=== PATIENT | male | born 1970 | race Caucasian/White ===

== ENCOUNTER → 2016-08-28 | Outpatient (CLI) | payer OTHER ==
[~2016-08-28] MED LIST: HYDR12.55 PO; LEVO75TA PO; LISI-725 PO
[2016-08-28 09:51] LABS: BASO % 1.6 %; BASO ABS # 0.12 K/uL (0-0.2); COMPLETE YES; EOS % 8.9 %; IG% 0.3 %; LYMPH % 35.4 %; LYMPH ABS # 2.72 K/uL (1.2-3.4); MEAN CELL VOLUME 85.2 fL (80-100); MEAN CORPUSCULAR HEMOGLOBIN 29.6 pg (25-34); MEAN CORPUSCULAR HGB CONC 34.8 g/dl (32-36); MEAN PLATELET VOLUME 9.4 fL (7.4-10.4); NEUT % 43.8 %; PLATELET COUNT 417 K/uL (130-400); RED BLOOD COUNT 4.93 M/uL (4.7-6.1); WHITE BLOOD COUNT 7.68 K/uL (4.8-10.8)
[2016-08-28 11:13] LABS: ALT/SGPT 42 U/L (12-78); AST/SGOT 48 U/L (15-37); BLOOD UREA NITROGEN 19 mg/dl (7-18); CALCIUM 9.7 mg/dl (8.5-10.1); CARBON DIOXIDE 25 mmol/L (21-32); CHLORIDE 103 mmol/L (98-107); GLUCOSE 84 mg/dl (70-99); POTASSIUM 3.7 mmol/L (3.5-5.1); SODIUM 140 mmol/L (136-145)
[2016-08-28 11:24] LABS: CHOLESTEROL 233 mg/dl (0-200); CHOLESTEROL/HDL RATIO 5.7; HDL CHOLESTEROL 41 mg/dl; LDL CHOLESTEROL CALCULATED 150 mg/dl; TRIGLYCERIDES 209 mg/dl (0-150); VERY LOW DENSITY LIPOPROT CALC 42 mg/dl
== END | disposition home or self-care (01) ==
LOC: C.LABSPEC 06:58
PROVIDERS: ATTEND Internal Medicine
DX: E78.00 Pure hypercholesterolemia, unspecified (principal); I10 Essential (primary) hypertension; E03.9 Hypothyroidism, unspecified

== ENCOUNTER → 2017-01-16 | Outpatient (CLI) | payer OTHER ==
--- NOTE | 2017-01-16 11:40 | DIAGNOSTIC IMAGING REPORT ---
LUMBAR SPINE FLEX/EXT ONLY CLINICAL HISTORY: Back pain. COMPARISON STUDY: Lumbar spine MRI 12/02/2016. FINDINGS: Flexion-extension views of the lumbar spine were submitted for review. Alignment remains intact throughout flexion and extension. Mild degenerative disc disease with in the L3-L4 and L4-5 levels remains unchanged. No fractures identified. IMPRESSION: The alignment remains intact through both flexion and extension. Electronically signed by: Glen Lunsford M.D. 01/16/2017 11:39 AM Dictated Date/Time: 01/16/2017 11:37 AM
== END | disposition home or self-care (01) ==
LOC: C.RADBC 11:08
PROVIDERS: ATTEND Anesthesiology
DX: M54.16 Radiculopathy, lumbar region (principal)

== ENCOUNTER 2023-01-27 08:47 | Observation (INO) ==
--- NOTE | 2023-01-02 12:24 | PAT Medication Instructions ---
Medication Instructions Date of Service January 02, 2023 Home Medications Medication Instructions Recorded sildenafil 100 mg tablet 100 mg PO ONCE PRN sexual activity 05/09/22 #30 tabs levothyroxine 50 mcg tablet 50 mcg PO QAM #90 tabs 12/11/22 atorvastatin 40 mg tablet 40 mg PO QAM #90 tabs 12/17/22 lisinopril 20 mg tablet 20 mg PO QAM #90 tabs 12/18/22 Medication Instructions: sildenafil 100 mg tablet 100 mg PO ONCE PRN sexual activity levothyroxine 50 mcg tablet 50 mcg PO QAM atorvastatin 40 mg tablet 40 mg PO QAM lisinopril 20 mg tablet 20 mg PO QAM DO NOT take the morning of surgery sildenafil 100 mg tablet 100 mg PO ONCE PRN sexual activity lisinopril 20 mg tablet 20 mg PO QAM Take morning of surgery With a small sip of water, OTHERWISE NOTHING TO EAT OR DRINK AFTER MIDNIGHT: levothyroxine 50 mcg tablet 50 mcg PO QAM atorvastatin 40 mg tablet 40 mg PO QAM Other Notes If you have any questions please call us at [phone] or [phone] or [phone] or [phone]
--- NOTE | 2023-01-05 10:57 | Anesthesiology Consultation ---
Date of Service January 05, 2023 Assessment & Plan (1) Encounter for pre-operative examination: COVID screening: Per assessment on 01/05: No known COVID-19 positive contacts or current COVID-19 related symptoms. Travel screen negative. Patient vaccinated. At surgeon discretion if preop Covid testing being done. Chart Review Chart Review: Acceptable Risk for Surgery and Patient seen in Pre Admission Testing Teaching & Discussion Pre-Anesthesia Teaching/Discussion Notes: Instructed NPO after midnight before surgery,except medications with 15 cc of water. Medication instructions prov ided according to the PAT guidelines. History Surgery Operation Date: 01/27/23 07:15 Proposed Procedures p Lumbar Laminectomy/Decompression L4-L5 - Tyler Snider MD Height/Weight Height: 5 ft 11 in Weight: 103.7 kg Allergies Allergy/AdvReac Type Severity Reaction Status Date / Time No Known Allergies Allergy Verified 01/02/23 10:16 Medications Home Medications Medication Instructions Recorded Confirmed Last Taken sildenafil 100 mg tablet 100 mg PO ONCE PRN sexual activity 05/09/22 01/02/23 Unknown #30 tabs levothyroxine 50 mcg tablet 50 mcg PO QAM #90 tabs 12/11/22 01/02/23 Unknown atorvastatin 40 mg tablet 40 mg PO QAM #90 tabs 12/17/22 01/02/23 Unknown lisinopril 20 mg tablet 20 mg PO QAM #90 tabs 12/18/22 01/02/23 Unknown Past Medical History Medical History Chronic low back pain Dyslipidemia Hypertension Hypothyroidism Lumbar spinal stenosis Severe at L4-5 Osteoarthritis Exercise / Class Metabolic Activity II 4-5 Yardwork/Stairs/Walk up hill Past Family History Family History Father Diabetes Heart disease Myocardial infarction, Onset Age: 65 Hypertension Mother Myasthenia gravis Hypertension Sister Hypertension Denies family history of Ovarian cancer Prostate cancer Breast cancer Colorectal cancer Past Surgical History Surgical History Family history of reaction to anesthesia Father- slow to wake with lasik eye surgery History of arthroscopy of left shoulder History of arthroscopy of right shoulder History of colonoscopy History of surgery on right wrist History of tooth extraction Hx of vasectomy S/P decompression of ulnar nerve (02/07/20) RT Past Anesthesia History No Hx of Anesthesia Complications Father- slow to wake with lasik eye surgery History of PONV No Hx of PONV and No Hx of Motion Sickness Social History Smoking Status: Never smoker Do You Dip or Chew Tobacco: No Hx Alcohol Use: No Hx Substance Use: No substance use type: does not use Review of Systems Patient denies chest pain, shortness of breath, dyspnea on exertion, fever, chills, cough, wheezing, palpitations. Physical Exam Vital Signs VITALS BP 129/79 P 58 TEMP 98.1 SP02 98%RA RESP 16 PHYSICAL Full cervical extension range of motion. Full TMJ range of motion. TMD 3.5 finger breaths Mallampati Score 1 Dentition: partial upper Lungs: clear throughout to auscultation Cardiac: regular rate and rhythm, no murmurs noted Spine: normal Carotid arteries: negative bruit Extremities: no LE edema Lab Results Anesthesia Preop Results Results Anesthesia Widget: WBC 9.50 K/ul (4.8-10.8) 01/05/23 Hgb 14.3 g/dl (14.0-18.0) 01/05/23 Hct 41.7 % (42.0-52.0) L 01/05/23 Plt 337 K/uL (130-400) 01/05/23 Na 138 mmol/L (136-145) 01/05/23 K 4.1 mmol/L (3.5-5.1) 01/05/23 Cl 105 mmol/L (98-107) 01/05/23 CO2 28 mmol/L (21-32) 01/05/23 BUN 14 mg/dl (6-23) 01/05/23 Creat 1.00 mg/dl (0.6-1.4) 01/05/23 Glucose Level 96 mg/dl (70-99(Fasting)) 01/05/23 PT 11.0 Seconds (9.0-12.0) 01/05/23 PTT 30.2 Seconds (21.0-31.0) 01/05/23 INR 1.0 (0.9-1.1) 01/05/23 TSH 3.421 uIu/ml (0.300-4.500) 11/11/22 Blood Type A Positive 01/05/23 Antibody Screen NEGATIVE 01/05/23 Testing Electrocardiogram Date: 01/05/23 SB with occasional PVCs at 59bpm. "Otherwise normal ECG" COVID-19 Risk Screen Screening Information COVID-19 Screen Date: 01/05/23 Exposure 21 Days Family/Household +COVID Last 21 Days: No Exposure 10 Days Any COVID Exposure Last 10 Days: No Symptoms Last 10 Days Experienced COVID Sx Last 10 Days: No + COVID 0-90 Days COVID + in Last 0-90 Days: No
[~2023-01-27 08:47] MED LIST changes: -HYDR12.55 PO; -LEVO75TA PO; -LISI-725 PO; +LR 15ML/HR IV SCH; +LR 60ML/HR IV SCH; +ceFAZolin 2000MG 2,000 MG/15 ML SYR IV SCH
[2023-01-27] MEDS ORDERED: MIDAZOLAM HCL 1 MG/ML 2ML VIAL ONE (09:08)
[2023-01-27] MEDS ORDERED: fentaNYL citrate PF 100 MCG/2 ML VIAL ONE (09:09)
[2023-01-27] MEDS ORDERED: HYDROmorphone INJ 1 MG/ML SYRINGE IV PRN (10:52)
[2023-01-27] MEDS ORDERED: fentaNYL citrate PF 100 MCG/2 ML VIAL IV PRN (10:52)
[2023-01-27] MEDS ORDERED: ATROPINE SULFATE 0.1 MG/ML 10ML SYR IV PRN (10:52)
[2023-01-27] MEDS ORDERED: ONDANSETRON INJ 2 MG/ML 2 ML VIAL IV PRN ×2 (10:52→14:47)
[2023-01-27] MEDS ORDERED: ePHEDrine sulfate 50 MG/ML AMP IV PRN (10:52)
[2023-01-27] MEDS ORDERED: ACETAMINOPHEN 1000 MG/100 ML IV IV ONE (11:13)
[2023-01-27] MEDS ORDERED: BUPIVACAINE 0.5 % 5 MG/1 ML MPF 30ML VIAL ONE (11:16)
[2023-01-27] MEDS ORDERED: GELATIN SPONGE SZ 100 ONE (11:17)
[2023-01-27] MEDS ORDERED: THROMBIN 5000 UNITS KIT ONE (11:17)
[2023-01-27] MEDS ORDERED: VANCOMYCIN HCL 1000MG/20ML VIAL ONE (11:17)
[2023-01-27] MEDS ORDERED: BUPIVACAINE LIPOSOME 1.3% 266 MG/20 ML VIAL ONE (11:21)
--- NOTE | 2023-01-27 11:45 | History & Physical Bridge Note ---
Date of Service January 27, 2023 History & Physical Bridge Note I have examined the patient, reviewed the History & Physical and in the interval since the performance of the History & Physical I have noted the following changes of clinical significance: no changes noted
[2023-01-27] MEDS ORDERED: HYDROmorphone INJ 2 MG/ML SYR/VIAL ONE (12:10)
[2023-01-27] MEDS ORDERED: ONDANSETRON INJ 2 MG/ML 2 ML VIAL ONE (12:43)
[2023-01-27] MEDS ORDERED: SUGAMMADEX SODIUM 200 MG/2 ML VIAL IV ONE (12:43)
[2023-01-27] MEDS ORDERED: PROPOFOL IV EMULSION 10 MG/ML 20 ML VIAL IV ONE (12:43)
[2023-01-27] MEDS ORDERED: DEXAMETHASONE SOD INJ 4 MG/ML VIAL ONE (12:43)
[2023-01-27] MEDS ORDERED: LIDOCAINE 2% 2 ML VIAL/AMP(20MG/ML) INFIL ONE (12:43)
[2023-01-27] MEDS ORDERED: ROCURONIUM BROMIDE 10 MG/ML 5 ML VIAL IV ONE (12:43)
--- NOTE | 2023-01-27 14:41 | Post Operative Brief Note ---
PG Immediate Post Op with CF Date of Surgery January 27, 2023 Pre & Post Diagnosis Operation Date: 01/27/23 11:15 Pre-Op Diagnosis: Lumber Spinal Stenosis Post-Op Diagnosis: Lumber Spinal Stenosis I identified the patient and participated in the time-out.: Yes Procedure Operation Date: 01/27/23 11:15 Actual Procedures p L4-L5 Lumbar Laminectomy/Decompression(Not Applicable) - Tyler Snider MD Surgeon Tyler Snider MD Social Sciences Lecturer none Estimated Blood Loss 50 Findings Consistent with Post-Op Diagnosis Specimens Specimen Description: No specimen per surgeon
[2023-01-27] MEDS ORDERED: ACETAMINOPHEN 1,000 MG/100 ML VIAL IV PRN (14:47)
[2023-01-27] MEDS ORDERED: LORazepam 0.5 MG TAB PO PRN (14:47)
[2023-01-27] MEDS ORDERED: FAMOTIDINE 20 MG TAB PO PRN (14:47)
[2023-01-27] MEDS ORDERED: PROMETHAZINE HCL 12.5 MG in SODIUM CHLORIDE 0.9% 50 ML IV PRN (14:47)
[2023-01-27] MEDS ORDERED: MAGNESIUM HYDROXIDE SUSP 30 ML UDC PO PRN (14:47)
[2023-01-27] MEDS ORDERED: HYDROmorphone INJ 0.5 MG/0.5 ML SYR IV PRN (14:47)
[2023-01-27] MEDS ORDERED: hydrOXYzine HCl 25 MG TAB PO PRN (14:47)
[2023-01-27] MEDS ORDERED: oxyCODONE/ACETAMINOPHEN 5mg/325mg TAB PO PRN (14:47)
[2023-01-27] MEDS ORDERED: ONDANSETRON 4 MG OD TAB PO PRN (14:47)
[2023-01-27] MEDS ORDERED: ACETAMINOPHEN 500 MG TAB PO PRN ×2 (14:47→15:17)
[2023-01-27] MEDS ORDERED: NALOXONE HCL 0.4 MG/1 ML VIAL/CARP IV PRN (14:47)
[2023-01-27] MEDS ORDERED: SOD PHOSPHATE/SOD BIPHOSPHATE ENEMA 132 ML BTL PR PRN (14:47)
[2023-01-27] MEDS ORDERED: METOCLOPRAMIDE HCL INJ 5 MG/ML 2 ML VIAL IV PRN (14:47)
[2023-01-27] MEDS ORDERED: DO NOT ADMINISTER FLU VACCINE PRN (14:47)
[2023-01-27] MEDS ORDERED: ALUMINUM/MAGNESIUM SUSP 30 ML UDC PO PRN (14:47)
[2023-01-27] MEDS ORDERED: bisacodyL 10 MG SUPP PR PRN (14:47)
[2023-01-27] MEDS ORDERED: diphenhydrAMINE Capsule 25 MG CAP PO PRN (14:47)
[2023-01-27] MEDS ORDERED: DO NOT ADMINISTER PNEUMOCOCCAL VACCINE PRN (14:47)
[2023-01-27] MEDS ORDERED: LORazepam 2 MG/1 ML VIAL IV PRN (14:47)
--- NOTE | 2023-01-27 15:16 | Fluoroscopy Report ---
FL lumbar spine 2-3V CLINICAL HISTORY: L4-L5 Lumbar laminectomy/Decompression TECHNIQUE: 1 views were obtained with the C-arm in the OR with the above procedure. Total fluoroscopy time was 20.5 seconds. Radiation dose was 14.58 mGy. Comparison: Comparison is made to lumbar spine radiographs 12/02/2022 FINDINGS/IMPRESSION: Intraoperative images were obtained of L4-L5 laminectomy and decompression, hard lopez identifies the L4-L5 level. Please correlate with intraoperative fluoroscopy and operative report. ACT 112: Negative or not required by law. Electronically signed by: Maciej Elmore M.D. 01/27/2023 3:15 PM
--- NOTE | 2023-01-27 16:17 | Anesthesiology Progress Note ---
Date of Service January 27, 2023 Anesthesia Post Procedure Vital Signs Vital Signs: Temp Pulse Pulse Resp BP BP Pulse Ox 01/27/23 16:05 98.4 F 73 16 142/84 H 97 01/27/23 15:30 97.7 F 78 16 151/92 H 93 01/27/23 15:15 98.6 F 79 14 139/92 93 01/27/23 15:05 77 13 154/92 H 97 01/27/23 14:55 82 12 154/97 H 97 01/27/23 14:45 79 15 163/89 H 99 01/27/23 14:37 98.2 F 85 16 138/86 99 01/27/23 10:30 98.1 F 70 18 150/99 H 99 O2 Del Method O2 Flow Rate 01/27/23 16:05 Room Air 01/27/23 15:30 Room Air 01/27/23 15:15 Room Air 01/27/23 15:05 Room Air 01/27/23 14:55 Room Air 01/27/23 14:45 Oxymask 6 01/27/23 14:37 Oxymask 10 01/27/23 10:30 Room Air Pain Intensity Lower Back: Pain Intensity: 2 Transfer of Care Handoff Completed per policy Notes Mental Status: alert / awake / arousable and participated in evaluation Patient Amnestic to Procedure: Yes Nausea / Vomiting: adequately controlled Pain: adequately controlled Airway Patency, RR, SpO2: stable & adequate BP & HR: stable & adequate Hydration State: stable & adequate Anesthetic Complications: no major complications apparent and Pt Satisfied with anesthetic care
[2023-01-27] MEDS: oxyCODONE HCL IR 5 MG TAB (IMMEDIATE RELEASE) PO PRN (17:36)
[2023-01-27] MEDS: LACTATED RINGER'S 1,000 ML IV SCH (17:37)
[2023-01-27] MEDS: ceFAZolin 1000MG 1,000 MG/7.5 ML SYR IV SCH (20:32)
[2023-01-27] MEDS ORDERED: DOCUSATE SODIUM/SENNA 50/8.6MG TAB PO SCH (21:00)
[2023-01-28] MEDS ORDERED: POLYETHYLENE (MIRALAX) 17 GM PACK PO SCH (06:00)
[2023-01-28] MEDS: ceFAZolin 1000MG 1,000 MG/7.5 ML SYR IV SCH (06:10)
[2023-01-28] MEDS: LACTATED RINGER'S 1,000 ML IV SCH (06:10)
[2023-01-28] MEDS ORDERED: LEVOTHYROXINE SODIUM 50 MCG TABLET PO SCH (06:30)
[2023-01-28] MEDS ORDERED: lisinopril 20 MG TAB PO SCH (09:00)
[2023-01-28] MEDS: oxyCODONE HCL IR 5 MG TAB (IMMEDIATE RELEASE) PO PRN (11:08)
--- NOTE | 2023-01-28 11:14 | Operative Report ---
PG Post Operative Report Pre & Post Diagnosis Operation Date: 01/27/23 11:15 Pre-Op Diagnosis: Lumber Spinal Stenosis Post-Op Diagnosis: Lumber Spinal Stenosis I identified the patient and participated in the time-out.: Yes Procedure Operation Date: 01/27/23 11:15 Actual Procedures p L4-L5 Lumbar Laminectomy/Decompression(Not Applicable) - Tyler Snider MD Patient was taken the operating room and after adequate esthesia was carefully positioned prone on the Prakash frame and checked for all positioning. After doing so a brief prep was performed followed by then and bring in fluoroscopy to nathaniel for the location of the incision. Prepping and draping was performed, I then began the procedure the midline incision taken down through the subcutaneo us tissues, fascia on either side of the spinous processes and then down to the interlaminar region at L4-5 which was then documented using fluoroscopy. With this completed, I then moved ahead with a decompression bring in the operative microscope. The inferior aspect spinous process of 4 was removed down to the interlaminar region followed by then using a high-speed bur to perform a bilateral inferior hemilaminotomy cross L4 and to a limited degree across severe superior aspect of L5 and along the medial facets on both sides. The ligamentum flavum was thinned, and then once I was able to complete the bony decompression, I then removed the remaining ligamentum flavum on both sides down to the lateral recess region and improved the area by undercutting the facets on both sides removing any remaining ligamentum flavum and decompression out towards the foramens. With the decompression completed, evaluation revealed no issues, minimal amount of bleeding was present. The operative site was irrigated with normal saline solution, I then injected local anesthetic in around the operative site followed by then thrombin Gelfoam and vancomycin powder. Closure was performed with 0 Vicryl sutures reattaching the supraspinous ligament were available followed by an additional layer of some 0 Vicryl sutures 2-0 Vicryl sutures and dipak for the skin, sterile dressing was applied. Patient tolerated procedure well was taken recovery room satisfied condition Surgeon Tyler Snider MD Manager Office Services none Estimated Blood Loss 50 Findings Consistent with Post-Op Diagnosis Specimens none Description of Procedure L4-5 posterior lumbar decompression I attest to the content of the Intraoperative Record and any orders documented therein. Any exceptions are noted below.
--- NOTE | 2023-01-28 11:16 | Orthopedic Progress Note ---
Date of Service January 28, 2023 Subjective Patient seen and evaluated, no signs of improvement in his low back and lower extremities with less numbness and tingling and pain down the leg, also the ability to walk upright without pain. He is limited amount of incisional pain otherwise stable course. Impression: Status post L4-5 lumbar decompression with improvement of preoperative symptoms. Plan: We will have the patient undergo physical therapy and Occupational Therapy, he will then discharge and return to the office in roughly 2 weeks, postoperative care was discussed. Review of Systems All systems reviewed & are unremarkable except as noted in HPI & below. Physical Exam . Results & Data Results & Data Laboratory Results . Diagnostic Findings . PG Care Time/CCT Total # of Minutes Spent Total Time Spent with Patient: Total time spent is greater than 50% in coordination of care (as documented) at patient's floor/unit and/or counseling patient: Coding Level of Care Code 04414 Post Operative Follow-Up Diagnoses
== END 2023-01-28 11:53 | disposition home or self-care (01) ==
LOC: 3E 08:47 → ASU 08:47